=== PATIENT | female | born 1955 | race Caucasian/White ===

== ENCOUNTER 2017-01-14 13:56 | Emergency (ER) | payer OTHER ==
[~2017-01-14] VITALS: Ht 167.6 cm; Wt 72.6 kg
--- NOTE | ~2017-01-14 | EKG ---
[address] [place] [address] ELECTROCARDIOGRAM REPORT Name: MODE OSEI Room #: [facility] [id number] Admission: 01/14/17 Attend Phys: Discharge: 01/14/17 Date of : 51 Report #: [id number] THIS REPORT FOR: //name// [facility] ED Test Date: 2017-01-14 Test Time: 14:28:20 Pat Name: MODE OSEI Department: Room: Gender: F [employer]: [id number] : 1955 Requested By: Jean-Pierre Moeller Order Number: [id number] MD: Dante Limon Measurements Intervals [place] Rate: 56 P: 39 NC: 193 QRS: -37 QRSD: 139 T: 120 QT: 461 QTc: 445 Interpretive Statements Sinus rhythm Left bundle branch block Compared to ECG 12/16/2010 07:02:55 Left bundle-branch block now present Electronically Signed On 01-14-2017 18:04:15 CDT by Dante Limon [email or web address] <ELECTRONICALLY SIGNED> By: Dante Limon MD, [facility] 01/14/17 1804 1428 1428 Dante Limon MD, [facility] /EPI
[~2017-01-14 13:56] MED LIST: ALPRAZOLAM 0.0.25 MG; ARMOUR THYROID120 M1 PO; COZAAR100 MG PO; MAXALT; NEXIUM40 MG PO; PROPRANOLOL 4040 M1 PO
[2017-01-14 14:42] LABS: BASOPHILS 0.7 % (0.0-2.0); EOSINOPHILS 6.4 % (0.0-3.0); HEMOGLOBIN 14.8 gm/dL (12.0-15.0); LYMPHOCYTES 29.2 % (24.0-44.0); MCH 28.8 pg (26.0-34.0); MCHC 33.8 g/dL (28.0-37.0); MCV 85.2 fL (80.0-100.0); MONOCYTES 5.4 % (1.0-8.0); PLATELET COUNT 164 thou/uL (150-400); POLYS 58.3 % (36.0-66.0); RBC 5.16 mil/uL (4.20-5.00); RDW 13.7 % (10.5-14.5); WBC 6.9 thou/uL (4.0-11.0)
[2017-01-14 14:47] LABS: CALCIUM 9.1 mg/dL (8.5-10.1); POTASSIUM 3.7 mmol/L (3.5-5.1)
[2017-01-14 14:49] LABS: URINE BILIRUBIN NEGATIVE (Negative); URINE BLOOD NEGATIVE (Negative); URINE COLOR YELLOW; URINE GLUCOSE-RANDOM* NEGATIVE (Negative); URINE KETONES NEGATIVE (Negative); URINE LEUKOCYTES-REFLEX NEGATIVE (Negative); URINE PROTEIN (DIPSTICK) NEGATIVE (Negative); URINE SPECIFIC GRAVITY <= 1.005 (1.003-1.035); URINE UROBILINOGEN 0.2 E.U./dl (0.2-1.0)
[2017-01-14 14:53] LABS: ALBUMIN 4.5 g/dL (3.4-5.0); MANUAL DIFF NO; TOTAL BILIRUBIN 0.6 mg/dL (<0.1-1.0); TOTAL PROTEIN 7.8 g/dL (6.4-8.2)
[2017-01-14 15:16] LABS: CASTS None Seen /LPF (None Seen); CRYSTALS None Seen /LPF (None Seen); SQUAMOUS 0-3 Few /LPF (0-3); URINE RBC None Seen /HPF (0-2); URINE WBC-REFLEX None Seen /HPF (0-5)
[2017-01-14] MEDS ORDERED: KEFLEX500 MG PO (15:30)
[2017-01-14 15:52] VITALS: BP 179/91
== END 2017-01-14 16:11 | disposition home or self-care (01) ==
LOC: ER 13:56
PROVIDERS: Physician Assistant
DX: R82.71 Bacteriuria (principal); E03.9 Hypothyroidism, unspecified; I44.7 Left bundle-branch block, unspecified; G43.909 Migraine, unspecified, not intractable, without status migrainosus; F17.210 Nicotine dependence, cigarettes, uncomplicated; Z88.5 Allergy status to narcotic agent